=== PATIENT | female | born 1985 | race Caucasian/White ===

== ENCOUNTER 2017-02-21 10:38 | Emergency (ER) | payer OTHER ==
[~2017-02-21] VITALS: Ht 157.5 cm; Wt 104.0 kg
[~2017-02-21 10:38] MED LIST: ALOS1TAB15 PO; COLE1TAB5 PO
[2017-02-21 10:53] VITALS: TEMP 37.5; Ht 157.5 cm; Wt 104.0 kg
[2017-02-21] MEDS ORDERED: SODIUM CHLORIDE 0.9% 1000ML 1,000 ML IV STA (11:27)
[2017-02-21] MEDS ORDERED: SODIUM CHLORIDE 0.9% 1000ML 1,000 ML IV ONE (11:27)
--- NOTE | 2017-02-21 11:38 | EMERGENCY ROOM VISIT NOTE ---
History Report prepared by Tomy: Rc Person Under the Supervision of: Dr. Juarez Keita M.D. First contact with patient: 11:20 Chief Complaint: DIARRHEA Stated Complaint: STOMACH CRAMPS, DIARRHEA/BLOOD Nursing Triage Summary: Pt states woke up at 0100 with "severe stomach cramps and diarrhea. Now it's nothing but blood." Denies n/v. Hx of IBS- "this feels completely different." Pt states took a home preg test Tues and it was positive. History of Present Illness The patient is a 31 year old female who presents to the Emergency Room with complaints of constant diarrhea that began this morning at 0100, 10.5 hours prior to arrival. The patient states that she woke up this morning with "horrendous" lower abdominal cramps before experiencing her first bout of diarrhea. She has had diarrhea ever since. The patient states that she still feels the urgency to have a BM but is only passing a bloody-mucous. She denies any vomiting today. She notes that there is a chance she is currently . She missed her last menstrual cycle and had a positive home test. She has not met with a OBGYN yet. She has had C-diff. twice in the past, but she does not believe that this episode feels similar. She also has a history of irritable bowel syndrome. Source of History: patient Onset: 10.5 hours [employer] Position: other (Gastrointestinal) Quality: other (Diarrhea) Timing: constant Associated Symptoms: No vomiting Note: Bloody stool present Review of Systems See HPI for pertinent positives & negatives. A total of 10 systems reviewed and were otherwise negative. Past Medical & Surgical Medical Problems: (1) IRRITABLE BOWEL SYNDROME (2) OVARIAN CYST NEC/NOS (3) REFLUX ESOPHAGITIS (4) TOBACCO USE DISORDER Old medical records were reviewed. Nurse's notes were reviewed and I agree with. History of previous IBS. She did stop some medications recently due to her being Family History Diabetes mellitus FHx: cancer Social History Smoking Status: Never Smoker Alcohol Use: none Marital Status: single Occupation Status: employed Current/Historical Medications Scheduled Alosetron Hcl (Lotronex), 1 MG PO BID Allergies Coded Allergies: No Known Allergies (Unverified , 09/21/14) Physical Exam Vital Signs Date Time Temp Pulse Resp B/P (MAP) Pulse Ox O2 Delivery O2 Flow Rate FiO2 7/2/17 14:55 89 18 129/87 100 02/21/17 13:15 88 127/80 98 Room Air 02/21/17 12:21 90 124/83 98 Room Air 02/21/17 10:53 37.5 104 18 138/93 99 Room Air Physical Exam General: Non ill appearing young female in no acute distress, breathing comfortably on room air. Normal speech HEENT: Normal cephalic atraumatic. Pupils are equal round and reactive to light. Sclerae are anicteric. Extraocular movements are intact. Oropharynx is pink with moist mucous membranes. No swelling of the mouth lips or tongue. Neck: Supple with a midline trachea. No meningeal signs or stiffness, no JVD or bruits. No Stridor. Chest: Clear to auscultation bilaterally. No wheezes or rhonchi. No increased work of breathing. Heart: regular rate and rhythm. Abdomen: Soft with minimal lower abdominal tenderness bilaterally, no peritonitis, nondistended without rebound guarding or rigidity. Extremities: No cyanosis clubbing or edema. No calf tenderness or assymetry Spine/Back. Non tender to palpation. No CVA tenderness Skin: Good turgor without rashes. Neurologic exam: Cranial nerves two through 12 are intact. Motor and sensation are intact and symmetrical throughout. Rectal: Rectal exam reveals no bleeding, no masses. Small external hemorrhoid with scant stool present. Stool was guaiac positive. Patient did produce a small BM on visit that was bloody mucous. Medical Decision & Procedures ER Provider Diagnostic Interpretation: Radiology results as stated below per my review and radiologist interpretation: ULTRASOUND OF THE PELVIS CLINICAL HISTORY: Pelvic pain. COMPARISON STUDY: Pelvic CT dated 10/28/2011. Pelvic ultrasound dated 03/03/2011. TECHNIQUE: Real-time, grayscale, and color flow sonography of the pelvis is performed both transabdominally and endovaginally. Images are reviewed in the transverse and longitudinal planes. FINDINGS: Uterus: The uterus is normal in size and echotexture, measuring 8.8 x 4.9 x 5.6 cm. Gestation: A small gestational sac is identified in the endometrial canal. The mean gestational sac diameter measures 0.88 cm which is too small for assessment of dates. A yolk sac is confirmed. A pole is not visualized Ovaries: The ovaries are normal in size and morphology. The right ovary measures 4.5 x 2.8 x 3.5 cm and the left ovary measures 3.0 x 1.2 x 2.6 cm. A 1.9 cm corpus luteum is suggested on the right. Additional follicles are seen bilaterally. Normal Doppler waveforms are shown within both ovaries. Pelvis: There is trace free fluid in the cul-de-sac. No concerning adnexal lesion is seen. IMPRESSION: 1. No acute sonographic abnormality is identified in the pelvis. No adnexal lesion is seen. 2. There is a small intrauterine gestation identified. This is too small for assessment of dates. A yolk sac is confirmed. Clinical, laboratory, and sonographic follow-up is recommended. 3. The ovaries are normal in appearance noting a corpus luteum on the right. 4. There is trace and nonspecific free fluid in the cul-de-sac. Electronically signed by: Brody Arshad M.D. 02/21/2017 1:34 PM Dictated Date/Time: 02/21/2017 1:31 PM ULTRASOUND OF THE PELVIS CLINICAL HISTORY: Pelvic pain. COMPARISON STUDY: Pelvic CT dated 10/28/2011. Pelvic ultrasound dated 03/03/2011. TECHNIQUE: Real-time, grayscale, and color flow sonography of the pelvis is performed both transabdominally and endovaginally. Images are reviewed in the transverse and longitudinal planes. FINDINGS: Uterus: The uterus is normal in size and echotexture, measuring 8.8 x 4.9 x 5.6 cm. Gestation: A small gestational sac is identified in the endometrial canal. The mean gestational sac diameter measures 0.88 cm which is too small for assessment of dates. A yolk sac is confirmed. A pole is not visualized Ovaries: The ovaries are normal in size and morphology. The right ovary measures 4.5 x 2.8 x 3.5 cm and the left ovary measures 3.0 x 1.2 x 2.6 cm. A 1.9 cm corpus luteum is suggested on the right. Additional follicles are seen bilaterally. Normal Doppler waveforms are shown within both ovaries. Pelvis: There is trace free fluid in the cul-de-sac. No concerning adnexal lesion is seen. IMPRESSION: 1. No acute sonographic abnormality is identified in the pelvis. No adnexal lesion is seen. 2. There is a small intrauterine gestation identified. This is too small for assessment of dates. A yolk sac is confirmed. Clinical, laboratory, and sonographic follow-up is recommended. 3. The ovaries are normal in appearance noting a corpus luteum on the right. 4. There is trace and nonspecific free fluid in the cul-de-sac. Electronically signed by: Brody Arshad M.D. 02/21/2017 1:34 PM Dictated Date/Time: 02/21/2017 1:31 PM Laboratory Results 02/21/17 11:46 Red Blood Count 5.03, Mean Corpuscular Volume 92.4, Mean Corpuscular Hemoglobin 30.2, Mean Corpuscular Hemoglobin Concent 32.7, Mean Platelet Volume 9.3, Neutrophils (%) (Auto) 71.3, Lymphocytes (%) (Auto) 20.6, Monocytes (%) (Auto) 5.6, Eosinophils (%) (Auto) 1.9, Basophils (%) (Auto) 0.3, Neutrophils # (Auto) 6.86, Lymphocytes # (Auto) 1.98, Monocytes # (Auto) 0.54, Eosinophils # (Auto) 0.18, Basophils # (Auto) 0.03 02/21/17 11:46 Test 02/21/17 11:35 02/21/17 11:46 Urine Color YELLOW Urine Appearance CLEAR (CLEAR) Urine pH 5.0 (4.5-7.5) Urine Specific [place] 1.021 (1.000-1.030) Urine Protein NEG (NEG) Urine Glucose (UA) NEG (NEG) Urine Ketones NEG (NEG) Urine Occult Blood NEG (NEG) Urine Nitrite NEG (NEG) Urine Bilirubin NEG (NEG) Urine Urobilinogen NEG (NEG) Urine Leukocyte Esterase NEG (NEG) Urine Test POS (NEG) White Blood Count 9.62 K/uL (4.8-10.8) Red Blood Count 5.03 M/uL (4.2-5.4) Hemoglobin 15.2 g/dL (12.0-16.0) Hematocrit 46.5 % (37-47) Mean Corpuscular Volume 92.4 fL (80-100) Mean Corpuscular Hemoglobin 30.2 pg (25-34) Mean Corpuscular Hemoglobin Concent 32.7 g/dl (32-36) Platelet Count 280 K/uL (130-400) Mean Platelet Volume 9.3 fL (7.4-10.4) Neutrophils (%) (Auto) 71.3 % Lymphocytes (%) (Auto) 20.6 % Monocytes (%) (Auto) 5.6 % Eosinophils (%) (Auto) 1.9 % Basophils (%) (Auto) 0.3 % Neutrophils # (Auto) 6.86 K/uL (1.4-6.5) Lymphocytes # (Auto) 1.98 K/uL (1.2-3.4) Monocytes # (Auto) 0.54 K/uL (0.11-0.59) Eosinophils # (Auto) 0.18 K/uL (0-0.5) Basophils # (Auto) 0.03 K/uL (0-0.2) RDW Standard Deviation 43.9 fL (36.4-46.3) RDW Coefficient of Variation 13.1 % (11.5-14.5) Immature Granulocyte % (Auto) 0.3 % Immature Granulocyte # (Auto) 0.03 K/uL (0.00-0.02) Anion Gap 8.0 mmol/L (3-11) Est Creatinine Clear Calc Drug Dose 101.0 ml/min Estimated GFR () 96.3 Estimated GFR (Non- 83.1 BUN/Creatinine Ratio 9.4 (10-20) Calcium Level 9.1 mg/dl (8.5-10.1) Total Bilirubin 0.3 mg/dl (0.2-1) Direct Bilirubin 0.1 mg/dl (0-0.2) Aspartate Amino Transf (AST/SGOT) 14 U/L (15-37) Alanine Aminotransferase (ALT/SGPT) 23 U/L (12-78) Alkaline Phosphatase 53 U/L (45-117) Total Protein 7.5 gm/dl (6.4-8.2) Albumin 4.0 gm/dl (3.4-5.0) Lipase 137 U/L (73-393) Human Chorionic Gonadotropin, Quant 7687 mIU/mL Laboratory studies as stated above per my review. Medications Administered Medications (Trade) Dose Ordered Sig/Kimberly Route Start Time Stop Time Status Last Admin Dose Admin Sodium Chloride 1,000 ml @ 999 mls/hr Q1H1M STAT IV 02/21/17 11:27 02/21/17 12:27 DC 02/21/17 12:02 999 MLS/HR Sodium Chloride 1,000 ml @ 200 mls/hr Q5H ONCE IV 02/21/17 11:27 02/21/17 16:26 02/21/17 12:03 200 MLS/HR ED Course 1122: Past medical records reviewed. The patient was evaluated in room B6, and a complete history and physical examination were performed. 1127: Ordered Sodium Chloride 1000 mL @ 200 mL/hr IV, Sodium Chloride 1000 mL @ 999 mL/hr IV. 1411: I performed a rectal exam on the patient at this time in the presence of a female nurse. See physical exam for further findings. 1422: Upon reevaluation, the patient is resting in bed. I discussed the results and treatment plan with her. She verbalized agreement of the treatment plan. The patient was discharged home. Medical Decision Blood pressure Screening: Patient was found to have normal blood pressure on screening and does not require follow-up. Medication Reconciliation: I attest that I have personally reviewed the patient' s current medication list. Differential Diagnosis include: Dehydration, diarrhea, C-diff, IBS, , ectopic , infection. This patient comes in as described above. She was placed in room B6. She is here for treatment and evaluation of diarrhea abdominal cramping likely and some rectal bleeding. She looks well on exam and her abdomen is benign and nontender. She's had a positive home test but is yet to be seen. IV access established hydrated 1 L normal saline bolus and 200 mL an hour of IV normal saline. She is not significantly anemic. She's had no white count to suggest infection. She's had no acute electrolyte or metabolic maladies. Her hCG was 7000. Ultrasound does show a yolk sac consistent with an IUP. Her abdomen is benign. I did a rectal exam and there is no active bleeding. She gives a small stool sample which showed some bloody mucus. She does have a history C. difficile but said this felt different. I did send the stool for culture and C. difficile. She does have a history of IBS and a may be that this got exacerbated from stopping her medications due to the fact that she is . She does feel well like to go home. Even if her stool cultures come back positive for Salmonella, Shigella, or Escherichia coli, most likely this will not be treated with antibiotics but these are pending at this point. C. difficile is also pending. She should follow-up with her doctor tomorrow for recheck she should return if: Worsening of symptoms, any new problems or concerns use [id number] acetaminophen but do not exceed the [id number] dosages and drink lots of fluids. She was happy with plan and discharged to home. Impression Primary Impression: Additional Impressions: Diarrhea Bloody stool Scribe Attestation The scribe's documentation has been prepared under my direction and personally reviewed by me in its entirety. I confirm that the note above accurately reflects all work, treatment, procedures, and medical decision making performed by me. Departure Information Dispostion Home / Self-Care Referrals Sebastian Luo M.D. (PCP) Forms HOME CARE DOCUMENTATION FORM, IMPORTANT VISIT INFORMATION, WORK / SCHOOL INSTRUCTIONS Patient Instructions My [facility] Additional Instructions Rest. Drink plenty of fluids. Follow-up with your doctor in next 1-2 days for recheck. Return if: worsening of symptoms, fever or chills, increasing pain or bleeding, vaginal bleeding, any new problems or concerns For discomfort ,may use acetaminophen/Tylenol a maximum of 2 [id number] pills every 6 hours Do not take with other medication that contains acetaminophen/Tylenol Problem Qualifiers
[2017-02-21 12:01] LABS: BASO % 0.3 %; BASO ABS # 0.03 K/uL (0-0.2); COMPLETE YES; EOS % 1.9 %; HEMATOCRIT 46.5 % (37-47); IG% 0.3 %; LYMPH % 20.6 %; LYMPH ABS # 1.98 K/uL (1.2-3.4); MEAN CELL VOLUME 92.4 fL (80-100); MEAN CORPUSCULAR HEMOGLOBIN 30.2 pg (25-34); MEAN CORPUSCULAR HGB CONC 32.7 g/dl (32-36); MEAN PLATELET VOLUME 9.3 fL (7.4-10.4); MONO % 5.6 %; NEUT % 71.3 %; PLATELET COUNT 280 K/uL (130-400); RED BLOOD COUNT 5.03 M/uL (4.2-5.4); WHITE BLOOD COUNT 9.62 K/uL (4.8-10.8)
[2017-02-21 12:08] LABS: MANUAL MICROSCOPIC REQUIRED? NO; REVIEW REQ? NO; URINE APPEARANCE CLEAR (CLEAR); URINE BILIRUBIN NEG (NEG); URINE COLOR YELLOW; URINE NITRITE NEG (NEG); URINE SPECIFIC GRAVITY 1.021 (1.000-1.030); UROBILINOGEN NEG (NEG)
[2017-02-21 12:22] LABS: BUN/CREATININE RATIO 9.4 (10-20); CALCIUM 9.1 mg/dl (8.5-10.1); CREATININE 0.93 mg/dl (0.60-1.20); POTASSIUM 3.6 mmol/L (3.5-5.1)
--- NOTE | 2017-02-21 13:36 | DIAGNOSTIC IMAGING REPORT ---
ULTRASOUND OF THE PELVIS CLINICAL HISTORY: Pelvic pain. COMPARISON STUDY: Pelvic CT dated 10/28/2011. Pelvic ultrasound dated 03/03/2011. TECHNIQUE: Real-time, grayscale, and color flow sonography of the pelvis is performed both transabdominally and endovaginally. Images are reviewed in the transverse and longitudinal planes. FINDINGS: Uterus: The uterus is normal in size and echotexture, measuring 8.8 x 4.9 x 5.6 cm. Gestation: A small gestational sac is identified in the endometrial canal. The mean gestational sac diameter measures 0.88 cm which is too small for assessment of dates. A yolk sac is confirmed. A pole is not visualized Ovaries: The ovaries are normal in size and morphology. The right ovary measures 4.5 x 2.8 x 3.5 cm and the left ovary measures 3.0 x 1.2 x 2.6 cm. A 1.9 cm corpus luteum is suggested on the right. Additional follicles are seen bilaterally. Normal Doppler waveforms are shown within both ovaries. Pelvis: There is trace free fluid in the cul-de-sac. No concerning adnexal lesion is seen. IMPRESSION: 1. No acute sonographic abnormality is identified in the pelvis. No adnexal lesion is seen. 2. There is a small intrauterine gestation identified. This is too small for assessment of dates. A yolk sac is confirmed. Clinical, laboratory, and sonographic follow-up is recommended. 3. The ovaries are normal in appearance noting a corpus luteum on the right. 4. There is trace and nonspecific free fluid in the cul-de-sac. Electronically signed by: Brody Arshad M.D. 02/21/2017 1:34 PM Dictated Date/Time: 02/21/2017 1:31 PM
[2017-02-21 14:55] VITALS: BP 129/87; PULSE 89; O2SAT 100
[2017-03-22] MEDS ORDERED: COLE1TAB PO (15:04)
[2017-03-22] MEDS ORDERED: IMD/2 PO (15:05)
[2017-03-22] MEDS ORDERED: SUMATRIPTAN PO (15:10)
== END 2017-02-21 14:57 | disposition home or self-care (01) ==
LOC: C.EDB 10:39
DX: R19.7 Diarrhea, unspecified (principal); K92.1 Melena; Z3A.00 Weeks of gestation of pregnancy not specified; K58.9 Irritable bowel syndrome, unspecified; K21.0 Gastro-esophageal reflux disease with esophagitis; Z83.3 Family history of diabetes mellitus; Z80.9 Family history of malignant neoplasm, unspecified

== ENCOUNTER → 2017-03-08 | Outpatient (CLI) | payer OTHER ==
[~2017-03-08] MED LIST changes: +COLE1TAB PO; -COLE1TAB5 PO; +IMD/2 PO; +SUMATRIPTAN PO
[2017-03-08 17:58] LABS: URINE APPEARANCE CLEAR (CLEAR); URINE BILIRUBIN NEG (NEG); URINE COLOR YELLOW; URINE NITRITE NEG (NEG); URINE PH 5.5 (4.5-7.5); URINE SPECIFIC GRAVITY 1.011 (1.000-1.030); UROBILINOGEN NEG (NEG)
[2017-03-08 18:03] LABS: MANUAL MICROSCOPIC REQUIRED? NO; REVIEW REQ? NO
== END | disposition home or self-care (01) ==
LOC: C.LABSPEC 17:15
PROVIDERS: ATTEND Obstetrics & Gynecology
DX: O99.330 Smoking (tobacco) complicating pregnancy, unspecified trimester (principal)

== ENCOUNTER → 2017-03-17 | Outpatient (CLI) | payer OTHER ==
[2017-03-17 16:35] LABS: BASO % 0.2 %; BASO ABS # 0.02 K/uL (0-0.2); COMPLETE YES; EOS % 2.1 %; IG% 0.2 %; LYMPH % 30.3 %; LYMPH ABS # 2.73 K/uL (1.2-3.4); MEAN CELL VOLUME 92.5 fL (80-100); MEAN CORPUSCULAR HEMOGLOBIN 31.6 pg (25-34); MEAN CORPUSCULAR HGB CONC 34.2 g/dl (32-36); MEAN PLATELET VOLUME 9.6 fL (7.4-10.4); MONO % 6.5 %; NEUT % 60.7 %; PLATELET COUNT 290 K/uL (130-400); RED BLOOD COUNT 4.65 M/uL (4.2-5.4); WHITE BLOOD COUNT 9.01 K/uL (4.8-10.8)
== END | disposition home or self-care (01) ==
LOC: C.LAB1850 15:35
PROVIDERS: ATTEND Obstetrics & Gynecology
DX: Z34.01 Encounter for supervision of normal first pregnancy, first trimester (principal)

== ENCOUNTER → 2017-03-24 | Outpatient (CLI) | payer OTHER | END | disposition home or self-care (01) | LOC: C.CPL 14:23 | PROVIDERS: ATTEND Obstetrics & Gynecology | DX: Z01.818 Encounter for other preprocedural examination (principal) ==

== ENCOUNTER 2017-03-26 09:58 | Day surgery (SDC) | payer OTHER ==
[2017-03-22 15:06] VITALS: BMI 41.0
[~2017-03-26] VITALS: Ht 160 cm; Wt 105.5 kg
[~2017-03-26 09:58] MED LIST changes: +ATROPINE SULFATE 0.1 MG/ML 5ML SYR IV PRN; +DOXYCYCLINE HYCLATE 100 MG CAP PO SCH; +DOXYCYCLINE HYCLATE 100 MG in DEXTROSE 5% 100ML IV SCH; +EpHEDrine SULFATE INJ 50 MG/ML AMP IV PRN; +FENTANYL CITRATE INJ 50 MCG/1 ML 2 ML VIAL IV PRN; +LACTATED RINGER'S 1000ML 1,000 ML IV SCH; +ONDANSETRON INJ 2 MG/ML 2 ML VIAL IV PRN
[2017-03-26 10:21] VITALS: BP 118/64; PULSE 90; TEMP 37.3; O2SAT 98; Ht 160 cm; Wt 105.5 kg
[2017-03-26] MEDS: LACTATED RINGER'S 1000ML 1,000 ML IV SCH ×2 (10:29→14:02)
[2017-03-26] MEDS ORDERED: MIDAZOLAM HCL 1 MG/ML 2ML VIAL ONE (11:59)
[2017-03-26] MEDS ORDERED: FENTANYL CITRATE INJ 50 MCG/1 ML 2 ML VIAL ONE (11:59)
[2017-03-26] MEDS ORDERED: DOXYCYCLINE HYCLATE 100 MG CAP PO SCH (12:00)
--- NOTE | 2017-03-26 12:19 | History & Physical Bridge Note ---
H&P Re-Evaluation Bridge Note: I have examined the patient, reviewed the History & Physical and in the interval since the performance of the History & Physical I have noted the following changes of clinical significance: No changes noted
--- NOTE | 2017-03-26 12:26 | Discharge Instructions ---
Discharge Instructions Date of Service Mar 26, 2017. Visit Reason for Visit: Missed Discharge Discharge Diagnosis / Problem: miscarriage, s/p D&E Discharge Goals Goal(s): Therapeutic intervention Activity Recommendations Activity Limitations: per Instructions/Follow-up section Anesthesia . Post Anesthesia Instructions: If you have had General Anesthesia or IV Sedation: * Do not drive today. * Resume driving when surgeon permits. * Do not make important decisions or sign legal documents today. * Call surgeon for: 1. Temperature elevations greater than 101 degrees F. 2. Uncontrollable pain. 3. Excessive bleeding. 4. Persistent nausea and vomiting. 5. Medication intolerance (nausea, vomiting or rash). * For nausea and vomiting use only clear liquids such as: tea, soda, bouillon until nausea subsides, then gradually increase diet as tolerated. * If you have any concerns or questions, call your surgeon's office. If physician is unavailable and it is an emergency, call 911 or go to the nearest emergency room. . Instructions / Follow-Up Instructions / Follow-Up ACTIVITY RECOMMENDATIONS: * Avoid tampons, douching, hot tubs, pools, and intercourse until bleeding has stopped. * May shower as usual. * No strenuous activity for 24-48 hours. After 24-48 hours, you may do anything you feel like doing (driving and sports are okay). SPECIAL CARE INSTRUCTIONS: Special Diet: * Mild nausea may occur in the immediate post-operative period. * Take clear liquids such as tea, cola or bouillon until all nausea has subsided; you may then resume your normal diet. Special Care: * Light bleeding and vaginal spotting can last from a few days to 3-4 weeks. Call your doctor if bleeding becomes heavier than the heaviest part of your period. * Check your temperature twice a day for one week. If it goes above 100.4 degrees Fahrenheit (38.0 Celsius), notify your doctor. * Call your doctor's office for an appointment for 6 weeks after your surgery. FOLLOW-UP VISIT: Call your doctor's office for an appointment for 6 weeks after your surgery. Diet Recommendations Recommended Home Diet: resume previous diet Pending Studies Studies pending at discharge: yes List of pending studies: pathology review of tissue Medical Emergencies . Who to Call and When: Medical Emergencies: If at any time you feel your situation is an emergency, please call 911 immediately. . Non-Emergent Contact Non-Emergency issues call your: Primary Care Provider, Environmental Inspector . . "Provider Documentation" section prepared by Katie Mobley. .
[2017-03-26] MEDS ORDERED: SUCCINYLCHOLINE 100MG/5ML SYR IV ONE (13:34)
[2017-03-26] MEDS ORDERED: DEXAMETHASONE SOD INJ 4 MG/ML VIAL ONE (13:34)
[2017-03-26] MEDS ORDERED: ROCURONIUM BROMIDE 10 MG/ML 5 ML VIAL ONE (13:34)
[2017-03-26] MEDS ORDERED: METOCLOPRAMIDE HCL INJ 5 MG/ML 2 ML VIAL ONE (13:34)
[2017-03-26] MEDS ORDERED: ONDANSETRON INJ 2 MG/ML 2 ML VIAL ONE (13:34)
[2017-03-26] MEDS ORDERED: DiphenhydrAMINE HCL 50 MG/ML VIAL ONE (13:34)
[2017-03-26] MEDS ORDERED: PROPOFOL IV EMULSION 10 MG/ML 20 ML VIAL IV ONE (13:34)
[2017-03-26] MEDS ORDERED: SODIUM CHLORIDE 0.9% 1000ML 1,000 ML IV SCH (13:41)
--- NOTE | 2017-03-26 13:44 | [facility] Post Operative Brief Note ---
Immediate Operative Summary Operative Date Mar 26, 2017. Pre-Operative Diagnosis Missed . Post-Operative Diagnosis Same as preop. Procedure(s) Performed Dilitation and evacuation with ultrasound guidance. Surgeon Dr. Mobley Cager Operator Surgeon(s) None Estimated Blood Loss 300 ml Findings Anteverted uterus. Large amount of products of conception. Uterus empty at conclusion of procedure with endo lining 5mm. Specimens A: Products of conception. Drains bladder drained prior to procedure Anesthesia general Complication(s) None Disposition Recovery Room / PACU
[2017-03-26] MEDS ORDERED: ONDANSETRON INJ 2 MG/ML 2 ML VIAL IV PRN (13:45)
[2017-03-26] MEDS ORDERED: PROMETHAZINE HCL INJ 25 MG in SODIUM CHLORIDE 0.9% 50ML 50 ML IV PRN (13:45)
[2017-03-26] MEDS ORDERED: OXYCODONE/ACETAMINOPHEN 5-325 TAB PO PRN ×2 (13:45)
[2017-03-26] MEDS ORDERED: METHYLERGONOVINE MALEATE 0.2 MG/ML AMP ONE (13:58)
--- NOTE | 2017-03-26 14:09 | Anesthesiology Progress Note ---
Anesthesia Post Op Note Date & Time Mar 26, 2017 at 14:08 Vital Signs Pain Intensity: 2 Vital Signs Past 12 Hours Date Time Temp Pulse Resp B/P (MAP) Pulse Ox O2 Delivery O2 Flow Rate FiO2 03/26/17 13:45 80 18 114/63 100 Mask 10 03/26/17 13:35 88 16 114/61 100 Mask 10 03/26/17 13:29 37.0 102 12 114/64 98 Mask 10 03/26/17 10:21 37.3 90 18 118/64 (82) 98 Room Air Notes Mental Status: alert / awake / arousable, participated in evaluation Pt Amnestic to Procedure: Yes Nausea / Vomiting: adequately controlled Pain: adequately controlled Airway Patency, RR, SpO2: stable & adequate BP & HR: stable & adequate Hydration State: stable & adequate Anesthetic Complications: no major complications apparent
[2017-03-26 14:13] VITALS: BP 143/77; PULSE 87; TEMP 37; O2SAT 97
[2017-03-26 14:40] VITALS: BP 134/73; PULSE 79; O2SAT 95
[2017-03-26 15:10] VITALS: BP 123/68; PULSE 78; TEMP 37; O2SAT 97
--- NOTE | 2017-03-26 16:09 | DIAGNOSTIC IMAGING REPORT ---
INTRAOPERATIVE ULTRASOUND GUIDANCE NO CHARGE CLINICAL HISTORY: Dilatation and evacuation COMPARISON STUDY: No previous studies for comparison. FINDINGS: Ultrasound guidance was provided by the electrophysiology technologist. There is no radiologist input IMPRESSION: Ultrasound guidance provided by the electrophysiology technologist. Electronically signed by: Santino Cotton M.D. 03/26/2017 4:08 PM Dictated Date/Time: 03/26/2017 4:07 PM
--- NOTE | 2017-03-27 04:04 | [facility] Operative Report ---
Operative Report Operative Date Mar 27, 2017. Pre-Operative Diagnosis Missed . Post-Operative Diagnosis Same as preop. Procedure(s) Performed Dilitation and evacuation with ultrasound guidance. Surgeon Dr. Mobley Loss Prevention Lead Surgeon(s) None Estimated Blood Loss 300 ml Findings moderate amount of products of conception. Per ultrasound, uterine cavity empty at conclusion of case, endo lining 5mm. Specimens A: Products of conception. Drains bladder drained prior to procedure Anesthesia general Complication(s) None Disposition Recovery Room / PACU Indications Missed 8wk measured by CRL found 03/17/17, no cardiac activity. Description of Procedure Informed consent was discussed and obtained in the office prior to procedure. The patient was taken to OR, general anesthesia was introduced, and she was prepped and draped in the usual sterile fashion with feet in candy cane stirrups. The cervix was gently dilated sequentially to admit a 10mm curved suction curette. This was then inserted, and with ultrasound guidance, the products of conception were removed with multiple sweeps. A sharp curette was used to gently curettage the uterine lining. The products were then sent to pathology. All instruments were removed from the vagina, patient tolerated well. Excellent hemostasis. The patient was then awoken from anesthesia and taken to the postop recovery area. She rec'd doxycycline PO prior to and post procedure, and rec'd Rx for flagyl. I attest to the content of the Intraoperative Record and any orders documented therein. Any exceptions are noted below.
== END 2017-03-26 15:13 | disposition home or self-care (01) ==
LOC: C.ACU 09:58
PROVIDERS: ATTEND Obstetrics & Gynecology
DX: O02.1 Missed abortion (principal); F17.200 Nicotine dependence, unspecified, uncomplicated; K21.9 Gastro-esophageal reflux disease without esophagitis; E03.9 Hypothyroidism, unspecified; Z83.3 Family history of diabetes mellitus

== ENCOUNTER → 2017-10-06 | Outpatient (CLI) | payer OTHER ==
[~2017-10-06] MED LIST changes: +ALOS1TAB PO; -ALOS1TAB15 PO; -ATROPINE SULFATE 0.1 MG/ML 5ML SYR IV PRN; -DOXYCYCLINE HYCLATE 100 MG CAP PO SCH; -DOXYCYCLINE HYCLATE 100 MG in DEXTROSE 5% 100ML IV SCH; -EpHEDrine SULFATE INJ 50 MG/ML AMP IV PRN; -FENTANYL CITRATE INJ 50 MCG/1 ML 2 ML VIAL IV PRN; -LACTATED RINGER'S 1000ML 1,000 ML IV SCH; -ONDANSETRON INJ 2 MG/ML 2 ML VIAL IV PRN
== END ==
LOC: C.LABSPEC 16:30
PROVIDERS: ATTEND Obstetrics & Gynecology
DX: Z34.01 Encounter for supervision of normal first pregnancy, first trimester (principal)

== ENCOUNTER → 2017-10-07 | Outpatient (CLI) | payer OTHER ==
[2017-10-07 16:41] LABS: BASO % 0.2 %; BASO ABS # 0.02 K/uL (0-0.2); EOS % 0.8 %; EOS ABS # 0.07 K/uL (0-0.5); HEMOGLOBIN 14.3 g/dL (12.0-16.0); IG# 0.03 K/uL (0.00-0.02); LYMPH % 19.5 %; LYMPH ABS # 1.62 K/uL (1.2-3.4); MEAN CELL VOLUME 91.7 fL (80-100); MEAN CORPUSCULAR HGB CONC 34.9 g/dl (32-36); MEAN PLATELET VOLUME 9.3 fL (7.4-10.4); MONO % 5.7 %; MONO ABS # 0.47 K/uL (0.11-0.59); NEUT % 73.4 %; NEUT ABS # 6.09 K/uL (1.4-6.5); PLATELET COUNT 270 K/uL (130-400); RED CELL DISTRIBUTION WIDTH CV 13.8 % (11.5-14.5); RED CELL DISTRIBUTION WIDTH SD 46.2 fL (36.4-46.3)
== END | disposition home or self-care (01) ==
LOC: C.LAB1850 15:34
PROVIDERS: ATTEND Obstetrics & Gynecology
DX: Z34.01 Encounter for supervision of normal first pregnancy, first trimester (principal); E03.9 Hypothyroidism, unspecified

== ENCOUNTER → 2017-11-18 | Outpatient (CLI) | payer OTHER | END | disposition home or self-care (01) | LOC: C.LABBFT 14:17 | PROVIDERS: ATTEND Internal Medicine | DX: E03.9 Hypothyroidism, unspecified (principal) ==

== ENCOUNTER → 2017-12-02 | Outpatient (CLI) | payer OTHER | END | disposition home or self-care (01) | LOC: C.LAB1850 15:22 | PROVIDERS: ATTEND Obstetrics & Gynecology | DX: Z34.02 Encounter for supervision of normal first pregnancy, second trimester (principal) ==

== ENCOUNTER 2017-12-15 12:08 | Emergency (ER) | payer OTHER ==
[~2017-12-15] VITALS: Ht 157.5 cm; Wt 112.0 kg
[2017-12-15 12:10] VITALS: TEMP 36.7; Ht 157.5 cm; Wt 112.0 kg
[2017-12-15] MEDS ORDERED: CYCLOBENZAPRINE HCL 5 MG TAB PO STA (12:30)
--- NOTE | 2017-12-15 12:39 | EMERGENCY ROOM VISIT NOTE ---
History Report prepared by Tomy: Nacho Spaulding Under the Supervision of: Dr. Anil Nava M.D. First contact with patient: 12:16 Chief Complaint: BACK PAIN Stated Complaint: BACK PAIN History of Present Illness The patient is a 32 year old white female with a past medical history of IBS, ovarian cyst, GERD, and a current of 18 weeks and 3 days who presents to the ED with a cc of worsening right middle back pain beginning five days ago that feels like a tight spasm. Positive worsening with movement. Negative urinary symptoms, nausea, vomiting, fever, chills, IV drug use, recent weight loss, hx of cancer, immunosuppressant drug use, hx of DM, problems with bowel movements, any incontinence, any recent sprain, strain, or heavy lifting. She took 1000mg Tylenol this morning around 1000. Source of History: patient Onset: five days ago Position: back (right) Quality: other (tight spasm) Timing: worsening Modifying Factors (Worsening): movement Associated Symptoms: No fevers, No chills, No nausea, No vomiting, No urinary symptoms Review of Systems See HPI for pertinent positives and negatives. A total of ten systems were reviewed and were otherwise negative. Past Medical & Surgical Medical Problems: (1) IRRITABLE BOWEL SYNDROME (2) OVARIAN CYST NEC/NOS (3) REFLUX ESOPHAGITIS (4) TOBACCO USE DISORDER Family History Diabetes mellitus FHx: cancer Social History Smoking Status: Current Every Day Smoker Alcohol Use: none Marital Status: single Occupation Status: employed Current/Historical Medications Scheduled Alosetron Hcl (Lotronex), 1 MG PO BID Cephalexin (Keflex), 1 CAP PO BID Colestipol Hcl (Colestid), 1 GM PO BID Loperamide Hcl (Imodium), 2 MG PO PRN Scheduled PRN Cyclobenzaprine Hcl (Flexeril), 1 TAB PO TID PRN for Pain [Sumatriptan], 1 TAB PO UD PRN for Migraine Allergies Coded Allergies: Lactose Intolerance (GI) (Unverified Allergy, Unknown, GI UPSET, 03/26/17) Physical Exam Vital Signs Date Time Temp Pulse Resp B/P (MAP) Pulse Ox O2 Delivery O2 Flow Rate FiO2 12/15/17 13:47 76 16 140/83 100 12/15/17 13:15 86 18 137/84 100 Room Air 12/15/17 12:10 36.7 100 24 126/85 97 Room Air Physical Exam GENERAL: Awake, alert, well-appearing, NAD HENT: Normocephalic, atraumatic. EYES: Normal conjunctiva. Sclera non-icteric. PERRL. No anisocoria. NECK: Supple. No nuchal rigidity. FROM. RESPIRATORY: CTAB, no rhonchi, wheezing, crackles CARDIAC: RRR, no MRG ABDOMEN: Soft, NTND, BS+ MSK: Some right sided reproducible paraspinal TTP. No midline TTP. Mild tightness in the back with RLE SLR without sciatica. No saddle anesthesia. NVI distally in BLE. No chest wall TTP, no LE edema NEURO: GCS 15, CN 2-12 intact, moves all 4s on command SKIN: No rash or jaundice noted. Medical Decision & Procedures Laboratory Results Test 12/15/17 11:15 Urine Color YELLOW Urine Appearance SL CLOUDY (CLEAR) Urine pH 6.0 (4.5-7.5) Urine Specific [place] 1.010 (1.000-1.030) Urine Protein NEG (NEG) Urine Glucose (UA) NEG (NEG) Urine Ketones NEG (NEG) Urine Occult Blood NEG (NEG) Urine Nitrite NEG (NEG) Urine Bilirubin NEG (NEG) Urine Urobilinogen NEG (NEG) Urine Leukocyte Esterase SMALL (NEG) Urine RBC 0-4 /hpf (0-4) Urine WBC 5-10 /hpf (0-5) Urine Epithelial Cells >30 /lpf (0-5) Urine Bacteria 2+ (NEG) Urine Test POS (NEG) Laboratory results reviewed by me Medications Administered Medications (Trade) Dose Ordered Sig/Kimberly Route Start Time Stop Time Status Last Admin Dose Admin Cyclobenzaprine HCl (Flexeril Tab) 10 mg ONE STAT PO 12/15/17 12:30 12/15/17 12:36 DC 12/15/17 12:45 10 MG Cephalexin Monohydrate (Keflex Cap) 500 mg NOW ONCE PO 12/15/17 13:15 12/15/17 13:16 DC 12/15/17 13:12 500 MG ED Course 1216: The patient was evaluated in room B12. A complete history and physical exam was performed. 1236: heart tones were 151 1307: I reevaluated the patient, and she was feeling better. Discussed results and discharge instructions: she verbalized understanding and agreement. The patient is ready for discharge. Medical Decision Nursing notes reviewed. Ancillary studies and prior records reviewed. The patient is a 32 year old white female with a past medical history of IBS and a current of 18 weeks and 3 days who presents to the ED with a cc of worsening right middle back pain beginning five days ago that feels like a tight spasm. Differential diagnosis: Etiologies such as musculoskeletal, disc herniation, fracture, aortic disease, metastatic disease, cord compression, discitis, infection, renal colic, gastrointestinal, acute exacerbation of chronic back pain, sciatica, cauda equina, as well as others were entertained. Patient was seen and evaluated the bedside. Patient is a 00 at 18 weeks and 3 days. Patient was complaining some right-sided paraspinal discomfort. Patient states that she feels like there is a tightness in her back. Patient denies any recent trauma. Patient denies any IV drug abuse, fevers, chills, Weight loss, immunosuppressant drugs, diabetes. Patient does have some reproducible right-sided paraspinal discomfort. Patient does have some worsening pain in the back with a right straight leg raise. Patient has no saddle anesthesia and no evidence of sciatica. Patient to have a urinalysis and UPT. Urine test is positive. Urinalysis is questionable for possible infection so the patient was given a first dose of Keflex and was told to follow-up as an outpatient. Patient was feeling improved after her medications and was told to follow-up as an outpatient. Patient is agreeable to plan of care. Patient was given strict follow-up, discharge, and return precautions. All questions were answered. Patient was deemed suitable for outpatient follow-up at this time. Patient agreed with the plan of care and was safely discharged home. Medication Reconcilliation Current Medication List: was personally reviewed by me Blood Pressure Screening Patient's blood pressure: Elevated blood pressure Blood pressure disposition: Referred to PCP Impression Primary Impression: Back pain Additional Impression: UTI (urinary tract infection) Scribe Attestation The scribe's documentation has been prepared under my direction and personally reviewed by me in its entirety. I confirm that the note above accurately reflects all work, treatment, procedures, and medical decision making performed by me. Departure Information Dispostion Home / Self-Care Prescriptions Cyclobenzaprine Hcl (FLEXERIL) 5 Mg Tab 1 TAB PO TID Y for Pain for 2 Days, #6 TAB Prov: Anil Nava M.D. 12/15/17 Cephalexin (KEFLEX) 500 Mg Cap 1 CAP PO BID for 7 Days, #13 CAP Prov: Anil Nava M.D. 12/15/17 Referrals Sebastian Luo M.D. (PCP) Forms HOME CARE DOCUMENTATION FORM, IMPORTANT VISIT INFORMATION Patient Instructions Back Pain Relieve, ED UTI Cystitis Female, Low Back Pain Self Care, [facility] [employer], Preg Back Pain, Preg Back Pain Exercise, Preg Back Pain Positions, Preg Back Pain Safety Additional Instructions Please return to the emergency department if you have worsening or recurrent symptoms not amenable to at-home treatment. Please call for a follow-up appointment with her primary care physician. Please take your medications as prescribed. If you have other concerns and/or complaints please feel free to also call your primary care physician's office or return the ED for further evaluation, management, and treatment. You may take tylenol 1000 mg every 6 hours as needed for pain/fever unless told by your physician to not take it or have liver problems. If you still have persistent discomfort you may try taking Flexeril. Please only use when you do not require full attention as it can make you sleepy and oversedated. Take your medications as prescribed. If taking antibiotic antibiotic please consider taking it with food, and/or yogurt or probiotic. You have been examined and treated today on an emergency basis only. This is not a substitute for, or an effort to provide, complete comprehensive medical care. It is impossible to recognize and treat all injuries or illnesses in a single emergency department visit. It is therefore important that you follow up closely with [facility], your PCP, and/or your specialist(s). Call as soon as possible for an appointment. Thank you for your time and consideration. I look forward to speaking with you again soon. Please don't hesitate to call us if you have any questions. Problem Qualifiers Primary Impression: Back pain Back pain location: low back pain Chronicity: acute Back pain laterality: right Sciatica presence: without sciatica Qualified Codes: M54.5 - Low back pain Additional Impression: UTI (urinary tract infection) Urinary tract infection type: acute cystitis Hematuria presence: without hematuria Qualified Codes: N30.00 - Acute cystitis without hematuria
[2017-12-15] MEDS ORDERED: CEPHALEXIN MONOHYDRATE 250 MG CAP PO ONE (13:15)
[2017-12-15] MEDS ORDERED: CYCL5TAB PO (13:17)
[2017-12-15] MEDS ORDERED: CEPH-571 PO (13:17)
[2017-12-15 13:47] VITALS: BP 140/83; PULSE 76; O2SAT 100
--- NOTE | 2017-12-17 15:18 | Pharmacy Progress Note ---
ED Pharmacist Culture FollowUp Date of Service: Dec 17, 2017. Called patient regarding enterococcus faecalis urine culture. Patient originally prescribed keflex. Discussed stopping keflex in favor of amoxicillin given culture results. Prescription for amoxicillin 875mg BID X 5 days called to [facility] at the patient's request. Case discussed with Dr. Bradshaw, who is the prescribing provider.
== END 2017-12-15 13:48 | disposition home or self-care (01) ==
LOC: C.EDB 12:10
DX: O26.892 Other specified pregnancy related conditions, second trimester (principal); M54.5 Low back pain; O23.12 Infections of bladder in pregnancy, second trimester; N30.00 Acute cystitis without hematuria; O99.332 Smoking (tobacco) complicating pregnancy, second trimester; F17.200 Nicotine dependence, unspecified, uncomplicated; O99.612 Diseases of the digestive system complicating pregnancy, second trimester; K58.9 Irritable bowel syndrome, unspecified; Z3A.18 18 weeks gestation of pregnancy

== ENCOUNTER → 2017-12-29 | Outpatient (CLI) | payer OTHER | END | disposition home or self-care (01) | LOC: C.LABBFT 14:13 | PROVIDERS: ATTEND Nurse Practitioner | DX: E03.9 Hypothyroidism, unspecified (principal) ==

== ENCOUNTER → 2018-03-29 | Outpatient (CLI) | payer OTHER | END | disposition home or self-care (01) | LOC: C.LABBFT 14:53 | PROVIDERS: ATTEND Nurse Practitioner | DX: E03.9 Hypothyroidism, unspecified (principal) ==

== ENCOUNTER → 2018-04-14 | Outpatient (CLI) | payer OTHER | END | disposition home or self-care (01) | LOC: C.LABSPEC 17:50 | PROVIDERS: ATTEND Obstetrics & Gynecology | DX: Z34.03 Encounter for supervision of normal first pregnancy, third trimester (principal) ==